=== PATIENT | female | born 1965 | race Caucasian/White ===

== ENCOUNTER 2020-03-26 08:33 | Emergency (ER) | payer MEDICAID, SELFPAY ==
[2020-03-26 08:41] VITALS: BP 195/107; PULSE 98; RESP 18; TEMP 36.6; O2SAT 97; BMI 43.5
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
[2020-03-26 11:01] VITALS: BP 184/92; PULSE 87; RESP 16; O2SAT 99
== END 2020-03-26 11:05 | disposition home or self-care (01) ==
PROVIDERS: Emergency Provider Emergency Medicine; PCP Nurse Practitioner Adult Health
DX: S39.012A Strain of muscle, fascia and tendon of lower back, initial encounter (principal); M25.562 Pain in left knee; M25.512 Pain in left shoulder; M54.2 Cervicalgia; V43.52XA Car driver injured in collision with other type car in traffic accident, initial encounter; Y93.9 Activity, unspecified; Y92.410 Unspecified street and highway as the place of occurrence of the external cause
CPT/HCPCS: 72100; 73030; 73564; 99283

== ENCOUNTER → 2022-10-17 08:32 | Outpatient (BNVA) | payer OTHER, SELFPAY | PROVIDERS: PCP Nurse Practitioner Adult Health; Visit Provider Physician Assistant Surgical ==

== ENCOUNTER → 2022-11-09 12:00 | Outpatient (BNVA) | payer OTHER, SELFPAY | PROVIDERS: PCP Nurse Practitioner Adult Health; Visit Provider Counselor Mental Health ==

== ENCOUNTER → 2022-11-21 13:30 | Outpatient (BNVA) | payer OTHER, SELFPAY | PROVIDERS: PCP Nurse Practitioner Adult Health; Visit Provider Counselor Mental Health | DX: F34.1 Dysthymic disorder (principal); E66.01 Morbid (severe) obesity due to excess calories ==

== ENCOUNTER → 2022-12-21 15:30 | Outpatient (BNVA) | payer OTHER, SELFPAY | PROVIDERS: PCP Nurse Practitioner Adult Health; Visit Provider Physician Assistant Surgical | DX: E66.01 Morbid (severe) obesity due to excess calories (principal); G47.33 Obstructive sleep apnea (adult) (pediatric); E11.9 Type 2 diabetes mellitus without complications; E28.2 Polycystic ovarian syndrome; R40.0 Somnolence; E50.9 Vitamin A deficiency, unspecified ==

== ENCOUNTER → 2024-03-19 13:30 | Outpatient (BNVA) | payer OTHER, SELFPAY | PROVIDERS: PCP Nurse Practitioner Adult Health; Visit Provider Urology ==

== ENCOUNTER 2024-11-10 08:22 | Outpatient (REF) | payer MEDICARE, MEDICAID, SELFPAY | END 2024-11-10 08:23 | disposition home or self-care (01) | LOC: HO.LAB 08:22 | PROVIDERS: PCP Nurse Practitioner Adult Health; Visit Provider Urology | DX: N32.81 Overactive bladder (principal); N39.0 Urinary tract infection, site not specified; R35.0 Frequency of micturition; R32 Unspecified urinary incontinence; Z98.890 Other specified postprocedural states; Z79.899 Other long term (current) drug therapy | CPT/HCPCS: 81003; 87086; 87088; 87186; 99212 ==

== ENCOUNTER 2024-11-10 08:22 | Outpatient (AMB) | payer MEDICARE, MEDICAID, SELFPAY ==
--- OUTSIDE RECORDS SUMMARY | 2024-11-10 08:30 | XMS_ITS | Data Portability ---
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 She is aware that given the severity of her osteoarthritis she likely will require a total knee arthroplasty in the future. The patient is interested in receiving an injection with corticosteroid. The right knee was prepped sterilely and an injection was administered utilizing 40mg of Kenalog and 4cc of 0.25% Marcaine. The patient tolerated the procedure well. Post-injection precautions were discussed. Recommended avoiding strenuous activity over the next 24-48 hours. Encouraged elevation of the leg, applying ice, and taking over the counter medication as needed. The patient is aware that the injection can be repeated as often as every 3 months. I will see her back in the office in 6 weeks for a recheck. All questions answered. Emily Chavez PA-C [address] [place] [address], [place], [address], [facility] 11/21/2023 06:54:26 01/10/2024 text/html I am seeing the patient today under the supervision of Dr. Jade who was available but who did not see the patient. HPI: Moni presents to the office today for a recheck of her right knee. She developed an acute onset of right knee pain when she was sitting on the floor and her granddaughter jumped onto her knee. She indicates her knee was extended in front of her on the floor at the time of the injury. Since this time she has been experiencing pain over the anterior knee. She is chronically on tramadol and Flexeril for her back but indicates that this has not improved her knee pain. Her symptoms are most significant when getting up from a seated position, prolonged sitting, and climbing stairs. On occasion she has felt as if her knee was unstable. Prior to this incident she was not having pain in her knee. She received a cortisone injection at her last visit which only provided her with mild pain relief. She has been taking Meloxicam. She is here today to discuss additional treatment options. PMH/PSH/MEDS/ALL/FMH/ SOC HX/ROS are reviewed in detail per my medical intake sheet. General Exam: Vital signs are as noted below Mental status: Alert and lucid. Normal insight, affect and grooming. LIFE SKILLS COACH: Gross motor coordination is intact. No spasticity or clonus noted. EXAMINATION: The patient is well appearing and in no apparent distress. Alert and oriented x3. Gait is antalgic. Right knee reveals varus deformity upon inspection. No joint effusion, edema, erythema, ecchymosis, or lesions. Neurovascularly intact. Tenderness present along the medial joint line. ROM is from -5-120 degrees. Patellofemoral crepitus noted. Stability intact with anterior, posterior, and varus/valgus stress at both 0 and 30 degrees of flexion. Positive patella grind and flexion pinch. 5/5 strength. Calf/leg compartments soft and compressible. Contralateral knee reveals varus deformity upon inspection. No joint effusion, edema, erythema, ecchymosis, or lesions. Neurovascularly intact. No localized tenderness. ROM is full and pain free. No crepitus noted. Stability intact with anterior, posterior, and varus/valgus stress at both 0 and 30 degrees of flexion. Special testing negative including Steinmann's, flexion pinch, and patella grind maneuvers. 5/5 strength. Calf/leg compartments soft and compressible. Bilateral hip exam reveals painless passive range of motion. No instability. 5/5 strength. X-rays ordered, obtained and reviewed at [facility] previously include an AP standing, Skinner, and merchant view of bilateral knees. Lateral view of right knee. Images reveal severe end-stage osteoarthritis of the right medial compartment with pkcw-lp-qvpx articulation, subchondral sclerosis, and osteophyte formation. There is end-stage osteoarthritis of the left medial compartment as well. Degenerative changes are present in the patellofemoral compartments. No acute fracture or lesion. IMPRESSION: Right knee end stage osteoarthritis PLAN: The natural progression of osteoarthritis has been discussed in addition to conservative versus surgical treatment options. She is aware that given the severity of her osteoarthritis anything short of a total knee arthroplasty will not provide her with watermaster relief. We reviewed the surgical procedure and postoperative recovery today. She would like to meet with Dr. Paul to further discuss the procedure. All questions answered. Emily Chavez PA-C [address] [place] [address] [address], [place], [address], [facility] 01/10/2024 22:08:11 02/13/2024 text/html I am seeing the patient today under the supervision of Dr. Paul who was available but who did not see the patient. HPI: Patient presenting today with known osteoarthritis of bilateral knees. Not happy with pain level and function of the knees. Is authorized for Gel One injections today. No new injury. She continues to take zzfz-kpd-rdewuvg medication for her pain. She met with Dr. Paul to discuss a total knee arthroplasty, but must lose weight prior to scheduling the procedure. Cortisone injections in the past have provided her with temporary relief. Past family, medical, social history and review of systems has been reviewed, updated, and is located in the patient? s chart. Examination: Examination of the bilateral knees have no effusion, erythema, or warmth. Injection site benign. Decreased range of motion. Point tender medial joint line. Calf is soft and nontender. 5/5 strength knee flexion and extension Impression: Bilateral knee end-stage osteoarthritis Plan: Nature of the diagnosis discussed with the patient today. Patient agreed to proceed with injections. Utilizing sterile technique, bilateral knees were injected with Gel One. Patient tolerated the procedure well. Postinjection precautions reviewed. Recommended ice and rest for the next 24-48 hours. Follow-up as symptoms dictate. [facility] speech recognition solar pool heating installer software was used to create portions of this document. An attempt at proofreading has been made to minimize errors. Please call for corrections. Emily Chavez PA-C [address], [place], [address], [facility] - [facility] 02/13/2024 12:50:57 OBGyn Episode No OBEpisode recorded.
--- NOTE | 2024-11-10 08:40 | A.OFFVIS_ITS ---
Intake Visit Reasons: follow up/Botox Intake Note: Patient is present for follow up/Botox Urology Medication:None Antibiotic Allergy:none Blood Thinner:none PVR:0ml Foreign Legal Consultant Required: No Allergies venom-honey bee Allergy (Severe, Verified 08/14/24 12:12) Anaphylaxis Medication List - Last Reconciled 11/10/24 by Yudy Saeed MD blood sugar diagnostic (FreeStyle Lite Strips) As directed cyclobenzaprine ER 15 mg PO DAILY fluticasone propionate 110 mcg/actuation (Flovent HFA) 2 puffs inhalation BID ibuprofen 400 mg PO TID PRN nitrofurantoin monohyd/m-cryst 100 mg (Macrobid) 100 mg PO Q12H 7 days solifenacin (Vesicare) 10 mg PO DAILY trazodone 50 mg PO BEDTIME PRN HPI Comments Details: 11/10/24--Moni is followed for overactive bladder. Failed oxybutynin and Myrbetriq as single medicine therapies. She is status post Botox bladder injection 100 units. on 04/08/2024. Comorbidity diabetes, overweight, the patient has been trying to lose weight. History of Present Illness The patient is a 59-year-old female presenting with management of overactive bladder symptoms and assessment of urinary symptoms. The primary diagnosis and therapy for the overactive bladder was a series of unsuccessful anticholinergic medications. Despite therapy failure, Botox was trialed in March 2024. Following Botox administration, she initially reported minimal efficacy but noted significant improvement after about 3 weeks, resulting in a single occurrence of nocturia nightly. She was also prescribed Myrbetriq 50 mg combination with the Botox management. Her insurance stopped paying for the Myrbetriq. She reported a suspected urinary tract infection due to strong-smelling urine identified about one week ago but verified no accompanying pain or burning sensation. Plan VESIcare 10 mg daily in the interim while scheduling repeat Botox 100 units. Urine for culture. Will empirically start Macrobid 100 mg twice a day for 7 days. The patient has had recurrent UTIs we will check a renal ultrasound. The patient will need a repeat urine culture prior to Botox injection. 03/19/24-- follow-up urinary incontinence, overactive bladder. The patient failed Myrbetriq 50 mg daily. I have discussed alternative therapies to include Botox bladder injection. Discussed risks and benefits including but not limited to UTI, urinary retention, need to repeat procedure to maintain efficacy. 12/22/22-- Moni is a 57-year-old female who presents to the office as a new patient evaluation for urinary incontinence. The patient complains having urgency and leakage. States having 4 c-sections. The largest weighing child was 10 pounds. The patient is diabetic and has lost 26 pounds through diet and exercise. The patient took oxybutynin for 10 years without benefits. The patient denies UTI in the recent past. The patient had cholecystectomy in the past. States an instance before cholecystectomy where she had trace blood in the urine. Evaluation today UA: Blood: negative, leukocytes: negative. Bladder scan PVR: 0 mL. [facility] Medical History Sleep apnea Diabetes TBI (traumatic brain injury) History of PCOS ACL (anterior cruciate ligament) tear Cholecystectomy planned delivery delivered Overactive bladder Insomnia Surgical History Hx of right knee surgery Hx of left knee surgery Hx of cholecystectomy Hx of section Family History Mother Phlebitis Stroke Arthritis Father Lung cancer Sister No problems noted. Sister No problems noted. Brother No problems noted. Brother No problems noted. Brother No problems noted. Social History Alcohol intake: former Patient Tobacco Use Status: Former Tobacco user Review of Systems Const All systems reviewed & are unremarkable except as noted in HPI and below Reports no additional complaints Eyes Reports no additional complaints ENT Reports no additional complaints Card Reports no additional complaints Resp Reports no additional complaints GI Reports no additional complaints Reports as per HPI Musc Reports no additional complaints Skin/Breast Reports system reviewed and no additional complaints, except as documented Neuro Reports no additional complaints Psych Reports no additional complaints Endo Reports no additional complaints Heri/Lymph Reports no additional complaints Aller/Immun Reports no additional complaints Assessment & Plan Assessment & Plan (1) Urinary incontinence: Code(s): R32 - Unspecified urinary incontinence Category: Medical (2) Overactive bladder: Code(s): N32.81 - Overactive bladder Category: Medical (3) Nocturia: Code(s): R35.1 - Nocturia Category: Medical (4) Recurrent UTI: Code(s): N39.0 - Urinary tract infection, site not specified Category: Medical Plan Plan VESIcare 10 mg daily in the interim while scheduling repeat Botox 100 units. Urine for culture. Will empirically start Macrobid 100 mg twice a day for 7 days. The patient has had recurrent UTIs we will check a renal ultrasound. The patient will need a repeat urine culture prior to Botox injection. Orders: Orders US renal BI Today N39.0 - Urinary tract infection, site not specified Medications: New solifenacin (Vesicare) 10 mg PO DAILY 30 tabs 2RF nitrofurantoin monohyd/m-cryst 100 mg (Macrobid) must administer with a meal/food 100 mg PO Q12H 7 days 14 caps 0RF Discontinued phenazopyridine (Pyridium) take with food Discontinued Reason: Patient no longer taking 200 mg PO BID PRN 12 tabs 1RF urinary burning vitamin A palmitate Discontinued Reason: Patient no longer taking 10,000 units PO DAILY 60 caps 0RF ciprofloxacin HCl Discontinued Reason: Patient no longer taking 500 mg PO BID 7 days 14 tabs 0RF mirabegron ER (Myrbetriq) Discontinued Reason: Patient no longer taking 50 mg PO BID 60 tabs 0RF bladder spasms cyanocobalamin (vitamin B-12) Discontinued Reason: Patient no longer taking 500 mcg PO DAILY 90 tabs 0RF Patient Instructions: The patient had an opportunity to ask questions regarding treatment plan. The patient expressed understanding and agreement with the above treatment plan. The patient is aware they should contact our office by phone for worsening of their current condition or the appearance of new symptoms. Compliance is encouraged with any medications and followup testing that is ordered. It is a privilege to be allowed the opportunity to participate in the urologic care of your patient. If you have any questions or concerns regarding treatment for the above conditions please do not hesitate to contact me. The office telephone contact is [phone]. This note is constructed in part using voice recognition software. While every effort has been made to ensure accuracy medical transcription errors may have been included. Yours sincerely, Yudy Saeed MD Scribe Plan - Not visible on output: Patient was informed and verbally consented to the use of an ambient scribe for clinic note documentation during this visit. Coding Level of Care Code Est Pt Level 4 (52574) Complex EM visit Add On G2211 Diagnoses Urinary incontinence R32 Overactive bladder N32.81 Nocturia R35.1 Recurrent UTI N39.0
== END 2024-11-10 09:13 | disposition home or self-care (01) ==
LOC: HO.HUSH 08:22
PROVIDERS: PCP Nurse Practitioner Adult Health; Visit Provider Urology
DX: R32 Unspecified urinary incontinence (principal); N32.81 Overactive bladder; R35.1 Nocturia; N39.0 Urinary tract infection, site not specified; R35.0 Frequency of micturition
CPT/HCPCS: 99214; G2211

== ENCOUNTER 2024-12-16 05:51 | Day surgery (SDC) | payer MEDICARE, MEDICAID, SELFPAY ==
[2024-11-21 09:51] VITALS: BMI 49.9
--- NOTE | 2024-11-24 11:58 | HO.ANESPROP2 ---
Documented by User: Marla Simon NP 12/15/24 10:23 HPI - Anesthesia Eval Consult details Narrative: 59yo F for Cystoscopy,with Bladder Botox Injection, 12/16/24 s/p same 03/2024 with GA-LMA 4 BMI 49.9 Anesthesia Pre-Procedure Meds Is the patient on any of the following meds?: GLP1/DPP4 PMFSH Active Problems Active Problems: All Active Problems Recurrent UTI (Acute) Nocturia (Acute) Sleep apnea (Acute) Urinary frequency (Acute) Urinary incontinence (Acute) Vitamin A deficiency (Acute) Dysthymia (Acute) PASCUAL (obstructive sleep apnea) (Acute) DMII (diabetes mellitus, type 2) (Acute) Adjustment disorder, unspecified (Acute) PCOS (polycystic ovarian syndrome) (Acute) Elevated blood-pressure reading, without diagnosis of hypertension (Acute) Snoring (Acute) Daytime somnolence (Acute) Morbid obesity (Acute) Overactive bladder (Acute) Past Medical History Medical History Sleep apnea Diabetes TBI (traumatic brain injury) History of PCOS ACL (anterior cruciate ligament) tear Cholecystectomy planned delivery delivered Overactive bladder Insomnia Family History Family History Mother Phlebitis Stroke Arthritis Father Lung cancer Sister No problems noted. Sister No problems noted. Brother No problems noted. Brother No problems noted. Brother No problems noted. Family history of problems with anesthesia: No Surgical History Surgical History Hx of right knee surgery Hx of left knee surgery Hx of cholecystectomy Hx of section History of Problems with Anesthesia: No Social History Social History Alcohol intake: former Patient Tobacco Use Status: Former Tobacco user Second Hand Smoke Exposure: No Use of substances other than those prescribed or required for medical reasons: No Have you been hit, kicked, punched, or otherwise hurt by someone within the past year? If so, by whom?: No Are you DNR?: No Advance Directives: No Advance Directives Information Provided: Yes Advance Directives on File: No Patient : No : No Poor oral hygiene: No Meds Allergies Allergy/AdvReac Type Severity Reaction Status Date / Time venom-honey bee Allergy Severe Anaphylaxis Verified 08/14/24 12:12 Home Medications ?Medication ?Instructions ?Recorded ?Confirmed ?Last Taken ?Type trazodone 50 mg tablet 50 mg PO BEDTIME PRN Sleep 01/12/21 12/16/24 12/13/24 History blood sugar diagnostic (SumanthStyle #10 ea 12/22/22 12/16/24 Unknown History Lite Strips) cyclobenzaprine 15 mg 15 mg PO DAILY 01/12/23 12/16/24 12/13/24 History capsule,extended release 24 hr fluticasone propionate 110 2 puff inhalation BID 01/12/23 12/16/24 12/02/24 History mcg/actuation HFA aerosol inhaler (Flovent HFA) ibuprofen 400 mg tablet 400 mg PO TID PRN moderate pain 01/12/23 12/16/24 12/09/24 History tirzepatide 7.5 mg/0.5 mL 7.5 mg subcut QWEEK 11/24/24 12/16/24 12/08/24 History subcutaneous pen injector (Patel) Exam Height,Weight and Vital Signs: Height 5 ft 5 in Weight 136 kg Assessment and Plan Assessment Anesthesia Assessment: Chart Reviewed Final Anesthetic Review Family History of Problems with Anesthesia: No History of Problems with Anesthesia: No Documented by User: Otoniel Hernandez MD 12/16/24 08:13 [facility] Past Medical History Medical History Sleep apnea Diabetes TBI (traumatic brain injury) History of PCOS ACL (anterior cruciate ligament) tear Cholecystectomy planned delivery delivered Overactive bladder Insomnia Family History Family History Mother Phlebitis Stroke Arthritis Father Lung cancer Sister No problems noted. Sister No problems noted. Brother No problems noted. Brother No problems noted. Brother No problems noted. Surgical History Surgical History Hx of right knee surgery Hx of left knee surgery Hx of cholecystectomy Hx of section Social History Social History Alcohol intake: former Patient Tobacco Use Status: Former Tobacco user Second Hand Smoke Exposure: No Use of substances other than those prescribed or required for medical reasons: No Have you been hit, kicked, punched, or otherwise hurt by someone within the past year? If so, by whom?: No Are you DNR?: No Advance Directives: No Advance Directives Information Provided: Yes Advance Directives on File: No Patient : No : No Poor oral hygiene: No Meds Allergies Allergy/AdvReac Type Severity Reaction Status Date / Time venom-honey bee Allergy Severe Anaphylaxis Verified 08/14/24 12:12 Home Medications ?Medication ?Instructions ?Recorded ?Confirmed ?Last Taken ?Type trazodone 50 mg tablet 50 mg PO BEDTIME PRN Sleep 01/12/21 12/16/24 12/13/24 History blood sugar diagnostic (FreeStyle #10 ea 12/22/22 12/16/24 Unknown History Lite Strips) cyclobenzaprine 15 mg 15 mg PO DAILY 01/12/23 12/16/24 12/13/24 History capsule,extended release 24 hr fluticasone propionate 110 2 puff inhalation BID 01/12/23 12/16/24 12/02/24 History mcg/actuation HFA aerosol inhaler (Flovent HFA) ibuprofen 400 mg tablet 400 mg PO TID PRN moderate pain 01/12/23 12/16/24 12/09/24 History tirzepatide 7.5 mg/0.5 mL 7.5 mg subcut QWEEK 11/24/24 12/16/24 12/08/24 History subcutaneous pen injector (Mounjaro) Exam Airway Mallampati Class: II TM Dist: <=3cm Neck ROM: Full Loose/Missing/Broken Teeth: No Heart: ok Lungs: ok Assessment and Plan Assessment Anesthesia Assessment: Anesthesia Plan Discussed Final Anesthetic Review NPO: Yes ASA Class: III Final Preanesthetic Review: No Changes in Pt Med Stat, Meds/Allgs Chart Reviewed, Consent Obtained/Reviewed and Anes Risks/Benef Reviewed Patient Risk: Intermediate Procedure Risk: Low Anesthetic Plan Anesthetic Plan: GA and Agree w/ Assess. and Plan Disposition: Standard PACU
[2024-12-16 06:13] VITALS: BMI 44.1
[2024-12-16 06:19] VITALS: BP 183/98; PULSE 86; RESP 16; TEMP 36.1; O2SAT 95
[2024-12-16] MEDS: Lactated Ringers 1,000 ML 100 ML IVCONT (06:29)
[2024-12-16 06:31] LABS: Glucose, Whole Blood 125 mg/dL (60-115)
--- NOTE | 2024-12-16 07:57 | MHC.SHP ---
Pre-Procedural Eval Section A - 24 Hr Update-Section A only Date of Service: 12/16/24 The patient is an INPATIENT: No The patient has been examined within 24 hours of the surgical procedure. The History & Physical has been completed within 30 days and I have reviewed it.: Yes Section B - Complete if H&P > 30 days Chief Complaint: Overactive bladder Allergies: Allergies Allergy/AdvReac Type Severity Reaction Status Date / Time venom-honey bee Allergy Severe Anaphylaxis Verified 08/14/24 12:12 Plan Diagnosis/Plan: Unchanged I have reviewed the history and physical and performed a pertinent physical examination on my patient. No changes have occurred unless specified. Cystoscopy bladder Botox injection 100 units. I have discussed risks to include hematuria, UTI, urinary retention, need to repeat procedure for sustained efficacy. Time Spent With Patient Time: Total time managing care of this patient today ____ minutes.
--- NOTE | 2024-12-16 07:57 | W.PM.OPN ---
Operative Note Operative Note Date of Service: 12/16/24 Narrative: PREOP DIAGNOSIS: Overactive bladder, OAB POSTOP DIAGNOSIS: OAB PROCEDURE: CYSTOSCOPY, BLADDER BOTOX INJECTION 100 UNITS SURGEON: Yudy Saeed MD ANESTHESIA: General Details of procedure: The patient was brought into the operating room placed on the OR table in supine position. Antibiotics confirmed. General anesthesia was administered. The patient was repositioned into lithotomy position, prepped and draped in the usual sterile fashion. Time-out was done per protocol. A 22 fr cystoscope was placed transurethrally into the bladder. Urine was sent for culture. The right and left ureteral orifices were visualized. There were moderate trabeculations noted. There were no suspicious bladder lesions seen. The Botox 100 units was mixed with 10 cc of normal saline and transurethral injections were placed into the posterior wall of the bladder. 0.5cc placed at each injection site. Injections were placed in a grid 5 across and 4 longitudinally. Injections were placed from the inferior to superior position. 2% lidocaine urojet was passed transurethrally into the bladder. The patient was brought out of anesthesia and taken to recovery in stable condition. Complications: None EBL: minimal (<5 mL) Drains: none
[2024-12-16 08:45] VITALS: BP 149/87; PULSE 83; RESP 15; TEMP 36.4; O2SAT 99
[2024-12-16 08:50] VITALS: BP 144/69; PULSE 83; RESP 14; O2SAT 98
[2024-12-16 08:55] VITALS: BP 163/92; PULSE 85; RESP 13; O2SAT 96
[2024-12-16 09:00] VITALS: BP 170/92; PULSE 85; RESP 20; O2SAT 97
[2024-12-16 09:08] VITALS: BP 175/97; PULSE 83; RESP 18; TEMP 36.1; O2SAT 97
== END 2024-12-16 09:42 | disposition home or self-care (01) ==
PROVIDERS: PCP Nurse Practitioner Adult Health; Visit Provider Urology
PROC: 3E0K8GC Introduction of Other Therapeutic Substance into Genitourinary Tract, Via Natural or Artificial Opening Endoscopic (ICD-10-PCS; CPT 52287; principal; 2024-12-16 08:40)
DX: N32.81 Overactive bladder (principal); R32 Unspecified urinary incontinence; R35.1 Nocturia; N39.0 Urinary tract infection, site not specified; E66.3 Overweight; E11.9 Type 2 diabetes mellitus without complications; Z87.820 Personal history of traumatic brain injury; G47.30 Sleep apnea, unspecified; G47.00 Insomnia, unspecified; Z90.49 Acquired absence of other specified parts of digestive tract; Z79.1 Long term (current) use of non-steroidal anti-inflammatories (NSAID); Z79.51 Long term (current) use of inhaled steroids; Z79.899 Other long term (current) drug therapy; Z98.890 Other specified postprocedural states; Z87.891 Personal history of nicotine dependence
CPT/HCPCS: 52287; 82947; 87086; J0585; J0690; J2003; J2405; J2704; J3010

== ENCOUNTER → 2024-12-16 05:51 | Outpatient (BNV) | payer MEDICARE, MEDICAID, SELFPAY | PROVIDERS: PCP Nurse Practitioner Adult Health; Visit Provider Urology | DX: N32.81 Overactive bladder (principal) | CPT/HCPCS: 52287 ==

== ENCOUNTER 2024-12-30 15:51 | Outpatient (REF) | payer MEDICARE, MEDICAID, SELFPAY ==
--- NOTE | ~2024-12-30 | US_ITS ---
EXAMINATION: US KIDNEY BILATERAL HISTORY: N39.0 - Urinary tract infection, site not specified TECHNIQUE: Real-time grayscale ultrasound imaging of the kidneys was performed and images were reviewed. COMPARISON: Correlation is made with an abdominal ultrasound dated 01/03/2023. FINDINGS: Right kidney: The right kidney measures 10.4 x 6.0 x 4.8 cm. Renal parenchymal echotexture and thickness are normal. There is a lower pole cyst measuring 11 x 9 x 8 mm. There is no hydronephrosis or renal calculi. Left Kidney: The left kidney measures 12.0 x 6.0 x 5.5 cm. Renal parenchymal echotexture and thickness are normal. There are no masses. There is no hydronephrosis or renal calculi. US/US renal BI IMPRESSION: 11 mm right lower pole renal cyst. Otherwise unremarkable renal ultrasound. Electronically signed by: Darryn Richmond MD 12/31/2024 07:00 AM EDT
== END 2024-12-30 15:52 | disposition home or self-care (01) ==
LOC: HO.US 15:51
PROVIDERS: PCP Nurse Practitioner Adult Health; Visit Provider Urology
DX: N39.0 Urinary tract infection, site not specified (principal)
CPT/HCPCS: 76775

== ENCOUNTER → 2024-12-30 15:54 | Outpatient (BNV) | payer MEDICARE, MEDICAID, SELFPAY | PROVIDERS: PCP Nurse Practitioner Adult Health; Visit Provider Radiology Diagnostic Radiology | DX: N28.1 Cyst of kidney, acquired (principal) | CPT/HCPCS: 76775 ==

== ENCOUNTER 2025-03-30 13:56 | Outpatient (AMB) | payer MEDICARE, MEDICAID, SELFPAY ==
--- NOTE | 2025-03-30 14:05 | MHC.OFFVIS ---
Intake Visit Reasons: OAB/Botox follow up Intake Note: Patient is present for OAB/Botox follow up Urology Medication:None Antibiotic Allergy:none Blood Thinner:none PVR:27ml Statement Distribution Clerk Required: No Allergies venom-honey bee Allergy (Severe, Verified 03/30/25 14:05) Anaphylaxis Medication List - Last Reconciled 03/30/25 by Yudy Saeed MD blood sugar diagnostic (FreeStyle Lite Strips) As directed cyclobenzaprine ER 15 mg PO DAILY fluticasone propionate 110 mcg/actuation (Flovent HFA) 2 puffs inhalation BID ibuprofen 400 mg PO TID PRN mirabegron ER (Myrbetriq) 50 mg PO DAILY nitrofurantoin monohyd/m-cryst 100 mg (Macrobid) 100 mg PO Q12H 7 days solifenacin (Vesicare) 10 mg PO DAILY sulfamethoxazole-trimethoprim 800-160 mg (Bactrim DS) 1 tab PO BID 3 days tirzepatide (Mounjaro) 7.5 mg subcut QWEEK trazodone 50 mg PO BEDTIME PRN HPI Comments Details: 03/30/25--is followed for overactive bladder. Comorbidity diabetes, overweight, the patient has been trying to lose weight. Failed oxybutynin and Myrbetriq as single medicine therapies. She is status post Botox bladder injection 100 units. on 04/08/2024, and 12/16/24. She states that both times the effect of Botox 100 units on reducing urge symptoms only lasted 4-5 weeks. She has also remained on VESIcare 10 mg daily. I have discussed increasing the dose of the Botox to 200 units. In the meantime I will add Myrbetriq 50 mg on top of the VESIcare 10 mg she is taking. I have also discussed other modalities that may be helpful in the future tibial nerve stimulation. Plan increase bladder Botox therapy to 200 units 11/10/24--Moni is followed for overactive bladder. Failed oxybutynin and Myrbetriq as single medicine therapies. She is status post Botox bladder injection 100 units. on 04/08/2024. Comorbidity diabetes, overweight, the patient has been trying to lose weight. History of Present Illness The patient is a 59-year-old female presenting with management of overactive bladder symptoms and assessment of urinary symptoms. The primary diagnosis and therapy for the overactive bladder was a series of unsuccessful anticholinergic medications. Despite therapy failure, Botox was trialed in March 2024. Following Botox administration, she initially reported minimal efficacy but noted significant improvement after about 3 weeks, resulting in a single occurrence of nocturia nightly. She was also prescribed Myrbetriq 50 mg combination with the Botox management. Her insurance stopped paying for the Myrbetriq. She reported a suspected urinary tract infection due to strong-smelling urine identified about one week ago but verified no accompanying pain or burning sensation. Plan VESIcare 10 mg daily in the interim while scheduling repeat Botox 100 units. Urine for culture. Will empirically start Macrobid 100 mg twice a day for 7 days. The patient has had recurrent UTIs we will check a renal ultrasound. The patient will need a repeat urine culture prior to Botox injection. 03/19/24-- follow-up urinary incontinence, overactive bladder. The patient failed Myrbetriq 50 mg daily. I have discussed alternative therapies to include Botox bladder injection. Discussed risks and benefits including but not limited to UTI, urinary retention, need to repeat procedure to maintain efficacy. 12/22/22-- Moni is a 57-year-old female who presents to the office as a new patient evaluation for urinary incontinence. The patient complains having urgency and leakage. States having 4 c-sections. The largest weighing child was 10 pounds. The patient is diabetic and has lost 26 pounds through diet and exercise. The patient took oxybutynin for 10 years without benefits. The patient denies UTI in the recent past. The patient had cholecystectomy in the past. States an instance before cholecystectomy where she had trace blood in the urine. Evaluation today UA: Blood: negative, leukocytes: negative. Bladder scan PVR: 0 mL. [facility] Medical History Sleep apnea Diabetes TBI (traumatic brain injury) History of PCOS ACL (anterior cruciate ligament) tear Cholecystectomy planned delivery delivered Overactive bladder Insomnia Surgical History Hx of right knee surgery Hx of left knee surgery Hx of cholecystectomy Hx of section Family History Mother Phlebitis Stroke Arthritis Father Lung cancer Sister No problems noted. Sister No problems noted. Brother No problems noted. Brother No problems noted. Brother No problems noted. Social History Alcohol intake: former Patient Tobacco Use Status: Former Tobacco user Second Hand Smoke Exposure: No Review of Systems Const All systems reviewed & are unremarkable except as noted in HPI and below Reports no additional complaints Eyes Reports no additional complaints ENT Reports no additional complaints Card Reports no additional complaints Resp Reports no additional complaints GI Reports no additional complaints Reports as per HPI Musc Reports no additional complaints Skin/Breast Reports system reviewed and no additional complaints, except as documented Neuro Reports no additional complaints Psych Reports no additional complaints Endo Reports no additional complaints Heri/Lymph Reports no additional complaints Aller/Immun Reports no additional complaints Assessment & Plan Assessment & Plan (1) Nocturia: Code(s): R35.1 - Nocturia Category: Medical (2) Spastic neurogenic bladder: Code(s): N31.8 - Other neuromuscular dysfunction of bladder Category: Medical Plan Plan increase bladder Botox therapy to 200 units Add Myrbetriq 50 mg to VESIcare 10 mg while awaiting Botox bladder injection Medications: New mirabegron ER (Myrbetriq) 50 mg PO DAILY 30 tabs 3RF Patient Instructions: The patient had an opportunity to ask questions regarding treatment plan. The patient expressed understanding and agreement with the above treatment plan. The patient is aware they should contact our office by phone for worsening of their current condition or the appearance of new symptoms. Compliance is encouraged with any medications and followup testing that is ordered. It is a privilege to be allowed the opportunity to participate in the urologic care of your patient. If you have any questions or concerns regarding treatment for the above conditions please do not hesitate to contact me. The office telephone contact is [phone]. This note is constructed in part using voice recognition software. While every effort has been made to ensure accuracy chief order dispatcher errors may have been included. Yours sincerely, Yudy Saeed MD Coding Level of Care Code Est Pt Level 4 (93609) Diagnoses Nocturia R35.1 Spastic neurogenic bladder N31.8
== END 2025-03-30 14:41 | disposition home or self-care (01) ==
LOC: HO.HUSH 13:57
PROVIDERS: PCP Nurse Practitioner Adult Health; Visit Provider Urology
DX: R35.1 Nocturia (principal); N31.8 Other neuromuscular dysfunction of bladder
CPT/HCPCS: 99214

== ENCOUNTER → 2025-03-30 13:56 | Outpatient (BNVA) | payer MEDICARE, MEDICAID, SELFPAY | PROVIDERS: PCP Nurse Practitioner Adult Health; Visit Provider Urology | DX: N31.8 Other neuromuscular dysfunction of bladder (principal); R35.1 Nocturia; Z79.899 Other long term (current) drug therapy | CPT/HCPCS: 51798; 81003; 99212 ==

== ENCOUNTER 2025-04-28 08:49 | Day surgery (SDC) | payer MEDICARE, MEDICAID, SELFPAY ==
--- NOTE | 2025-04-10 10:11 | HO.ANESPROP2 ---
Documented by User: Kelly Vargas NP 04/10/25 10:14 HPI - Anesthesia Eval Consult details Narrative: 59 yr old female for Cystoscopy Bladder Botox Injection s/p cystoscopy with GA, LMA 4 12/2024 Sleep apnea H/O TBI Anesthesia Pre-Procedure Meds Is the patient on any of the following meds?: GLP1/DPP4 PMFSH Active Problems Active Problems: All Active Problems (Updated 03/30/25 @ 14:48 by Yudy Saeed MD) Spastic neurogenic bladder (Acute) Recurrent UTI (Acute) Nocturia (Acute) Sleep apnea (Acute) Urinary frequency (Acute) Urinary incontinence (Acute) Vitamin A deficiency (Acute) Dysthymia (Acute) PASCUAL (obstructive sleep apnea) (Acute) DMII (diabetes mellitus, type 2) (Acute) Adjustment disorder, unspecified (Acute) PCOS (polycystic ovarian syndrome) (Acute) Elevated blood-pressure reading, without diagnosis of hypertension (Acute) Snoring (Acute) Daytime somnolence (Acute) Morbid obesity (Acute) Overactive bladder (Acute) Past Medical History Medical History Sleep apnea Diabetes TBI (traumatic brain injury) History of PCOS ACL (anterior cruciate ligament) tear Cholecystectomy planned delivery delivered Overactive bladder Insomnia Family History Family History Mother Phlebitis Stroke Arthritis Father Lung cancer Sister No problems noted. Sister No problems noted. Brother No problems noted. Brother No problems noted. Brother No problems noted. Family history of problems with anesthesia: No Surgical History Surgical History History of total knee replacement History of cystoscopy (12/16/24) Hx of right knee surgery Hx of left knee surgery Hx of cholecystectomy Hx of section History of Problems with Anesthesia: No Social History Social History Are you a primary multi care technician to a significant other at home: No Do you presently have visiting nurse or other home services: No Alcohol intake: former Patient Tobacco Use Status: Former Tobacco user Second Hand Smoke Exposure: No Use of substances other than those prescribed or required for medical reasons: Yes Substance Use Frequency: Occasionally Have you been hit, kicked, punched, or otherwise hurt by someone within the past year? If so, by whom?: No Are you DNR?: No Advance Directives: No Advance Directives Information Provided: Yes Advance Directives on File: No Patient : No : No Meds Allergies Allergy/AdvReac Type Severity Reaction Status Date / Time venom-honey bee Allergy Severe Anaphylaxis Verified 03/30/25 14:05 Home Medications ?Medication ?Instructions ?Recorded ?Confirmed ?Last Taken ?Type trazodone 50 mg tablet 50 mg PO BEDTIME PRN Sleep 01/12/21 04/28/25 12/13/24 History blood sugar diagnostic (FreeStyle #10 ea 12/22/22 04/28/25 Unknown History Lite Strips) cyclobenzaprine 15 mg 15 mg PO DAILY 01/12/23 04/28/25 12/13/24 History capsule,extended release 24 hr fluticasone propionate 110 2 puff inhalation BID 01/12/23 04/28/25 12/02/24 History mcg/actuation HFA aerosol inhaler (Flovent HFA) ibuprofen 400 mg tablet 400 mg PO TID PRN moderate pain 01/12/23 04/28/25 04/14/25 History tirzepatide 7.5 mg/0.5 mL 7.5 mg subcut QWEEK 11/24/24 04/28/25 04/17/25 History subcutaneous pen injector (Mounjaro) Assessment and Plan Final Anesthetic Review Family History of Problems with Anesthesia: No History of Problems with Anesthesia: No Documented by User: Nasir Garcia MD 04/28/25 11:45 PMFSH Past Medical History Medical History Sleep apnea Diabetes TBI (traumatic brain injury) History of PCOS ACL (anterior cruciate ligament) tear Cholecystectomy planned delivery delivered Overactive bladder Insomnia Functional capacity: independent ambulation Family History Family History Mother Phlebitis Stroke Arthritis Father Lung cancer Sister No problems noted. Sister No problems noted. Brother No problems noted. Brother No problems noted. Brother No problems noted. Surgical History Surgical History History of total knee replacement History of cystoscopy (12/16/24) Hx of right knee surgery Hx of left knee surgery Hx of cholecystectomy Hx of section Social History Social History Are you a primary multi care technician to a significant other at home: No Do you presently have visiting nurse or other home services: No Alcohol intake: former Patient Tobacco Use Status: Former Tobacco user Second Hand Smoke Exposure: No Use of substances other than those prescribed or required for medical reasons: Yes Substance Use Frequency: Occasionally Have you been hit, kicked, punched, or otherwise hurt by someone within the past year? If so, by whom?: No Are you DNR?: No Advance Directives: No Advance Directives Information Provided: Yes Advance Directives on File: No Patient : No : No Meds Allergies Allergy/AdvReac Type Severity Reaction Status Date / Time venom-honey bee Allergy Severe Anaphylaxis Verified 03/30/25 14:05 Home Medications ?Medication ?Instructions ?Recorded ?Confirmed ?Last Taken ?Type trazodone 50 mg tablet 50 mg PO BEDTIME PRN Sleep 01/12/21 04/28/25 12/13/24 History blood sugar diagnostic (FreeStyle #10 ea 12/22/22 04/28/25 Unknown History Lite Strips) cyclobenzaprine 15 mg 15 mg PO DAILY 01/12/23 04/28/25 12/13/24 History capsule,extended release 24 hr fluticasone propionate 110 2 puff inhalation BID 01/12/23 04/28/25 12/02/24 History mcg/actuation HFA aerosol inhaler (Flovent HFA) ibuprofen 400 mg tablet 400 mg PO TID PRN moderate pain 01/12/23 04/28/25 04/14/25 History tirzepatide 7.5 mg/0.5 mL 7.5 mg subcut QWEEK 11/24/24 04/28/25 04/17/25 History subcutaneous pen injector (Patel) Exam Exam Date and Time: 04/27/25 Airway TM Dist: >3cm Neck ROM: Full Loose/Missing/Broken Teeth: No Heart: normal Lungs: normal Other: normal Assessment and Plan Assessment Anesthesia Assessment: Anesthesia Plan Discussed, Smoking Cess. Discussed and Chart Reviewed Final Anesthetic Review NPO: Yes ASA Class: II Final Preanesthetic Review: No Changes in Pt Med Stat, Meds/Allgs Chart Reviewed, Consent Obtained/Reviewed and Anes Risks/Benef Reviewed Patient Risk: Intermediate Procedure Risk: Low Anesthetic Plan Anesthetic Plan: GA Disposition: Standard PACU
[2025-04-10 11:22] VITALS: BMI 44.1
[2025-04-28] VITALS (7 sets, daily range): BP systolic 110–154; BP diastolic 70–86; PULSE 80–99; RESP 14–18; TEMP 36.1–36.9; O2SAT 95–100; BMI 43.8
[2025-04-28] MEDS: Lactated Ringers 1,000 ML 100 ML IVCONT (09:18)
[2025-04-28 09:26] LABS: Glucose, Whole Blood 121 mg/dL (60-115)
--- NOTE | 2025-04-28 11:51 | MHC.SHP ---
Pre-Procedural Eval Section A - 24 Hr Update-Section A only Date of Service: 04/28/25 The patient is an INPATIENT: No The patient has been examined within 24 hours of the surgical procedure. The History & Physical has been completed within 30 days and I have reviewed it.: Yes Section B - Complete if H&P > 30 days Chief Complaint: Other neuromuscular dysfunction of bladder Allergies: Allergies Allergy/AdvReac Type Severity Reaction Status Date / Time venom-honey bee Allergy Severe Anaphylaxis Verified 03/30/25 14:05 Plan Diagnosis/Plan: Unchanged I have reviewed the history and physical and performed a pertinent physical examination on my patient. No changes have occurred unless specified. Cystoscopy bladder Botox injection 200 units. I have discussed risks to include hematuria, UTI, urinary retention, need to repeat procedure for sustained efficacy. Time Spent With Patient Time: Total time managing care of this patient today ____ minutes.
--- NOTE | 2025-04-28 11:52 | W.PM.OPN ---
Operative Note Operative Note Date of Service: 04/28/25 Narrative: PreOperative Diagnosis: Overactive bladder, spastic neurogenic bladder Post Operative Diagnosis: Overactive bladder, spastic neurogenic bladder Procedure: Cystoscopy with injection 200 units Botox intra detrusor muscle Surgeon: Dr Yudy Saeed Anesthesia: General Procedure: After informed consent was verified the patient was brought to the operating room and placed in a supine position. Anesthesia was administered per protocol. Time out was done per protocol. Antibiotics confirmed. Ancef 2 gm IV. Gentamyacin 160 mg IV. Cystoscopy performed with 22 Alban[place] cystoscope. Bladder was emptied of urine. Urine sent for culture. Bladder was refilled. The bladder was visualized, the right and left ureteral orifices were visualized. There were mild inflammatory changes noted. Using 200 units of Botox mixed in 10 cc of normal saline; transurethral injections were placed into the posterior wall of the bladder. 0.5cc placed at each injection site. Injections were placed in a grid 5 across and 4 longitudinally. Injections were placed from the inferior to superior position. The bladder was drained, the cystoscope was removed. 2% lidocaine was passed transurethrally. The patient tolerated the procedure and was brought out of anesthesia and taken to the recovery room in stable condition. Complications: none EBL: minimal (<5 mL) Drains: None
== END 2025-04-28 13:19 | disposition home or self-care (01) ==
PROVIDERS: PCP Pediatrics; Visit Provider Urology
PROC: 3E0K8GC Introduction of Other Therapeutic Substance into Genitourinary Tract, Via Natural or Artificial Opening Endoscopic (ICD-10-PCS; CPT 52287; principal; 2025-04-28 10:30)
DX: N31.8 Other neuromuscular dysfunction of bladder (principal); N32.81 Overactive bladder; R35.1 Nocturia; E11.9 Type 2 diabetes mellitus without complications; E66.3 Overweight; G47.30 Sleep apnea, unspecified; G47.00 Insomnia, unspecified; Z87.820 Personal history of traumatic brain injury; Z79.1 Long term (current) use of non-steroidal anti-inflammatories (NSAID); Z79.51 Long term (current) use of inhaled steroids; Z79.85 Long-term (current) use of injectable non-insulin antidiabetic drugs; Z79.899 Other long term (current) drug therapy; Z91.030 Bee allergy status; Z90.49 Acquired absence of other specified parts of digestive tract; Z96.659 Presence of unspecified artificial knee joint; Z98.890 Other specified postprocedural states; Z87.891 Personal history of nicotine dependence
CPT/HCPCS: 52287; 82947; 87086; 87088; 87186; J0585; J0690; J1171; J1580; J2003; J2704; J3010

== ENCOUNTER → 2025-04-28 08:49 | Outpatient (BNV) | payer MEDICARE, MEDICAID, SELFPAY | PROVIDERS: PCP Pediatrics; Visit Provider Urology | DX: N32.81 Overactive bladder (principal); N31.8 Other neuromuscular dysfunction of bladder | CPT/HCPCS: 52287 ==

== ENCOUNTER → 2025-05-11 12:52 | Outpatient (BNVA) | payer MEDICARE, MEDICAID, SELFPAY | PROVIDERS: PCP Pediatrics; Visit Provider Urology | DX: N32.81 Overactive bladder (principal) | CPT/HCPCS: 51798 ==